=== PATIENT | male | born 1970 | race Caucasian/White ===

== ENCOUNTER 2022-10-17 11:04 | Outpatient (CLI) | payer OTHER, SELFPAY ==
[2022-10-18 03:26] LABS: Hemoglobin A1C 6.4 % (<5.7)
== END 2022-10-17 11:05 | disposition home or self-care (01) ==
LOC: ANHGOSHLAB 11:06
PROVIDERS: PCP Family Medicine; Visit Provider Internal Medicine
DX: E11.9 Type 2 diabetes mellitus without complications (principal); G47.30 Sleep apnea, unspecified; G47.34 Idiopathic sleep related nonobstructive alveolar hypoventilation; R06.83 Snoring
CPT/HCPCS: 36415; 83036

== ENCOUNTER 2022-11-01 08:16 | Outpatient (CLI) | payer OTHER, SELFPAY ==
--- NOTE | 2022-11-21 22:25 | WPDSLEEPSTUD ---
Sleep Study Date of Study: 11/01/22 Ordering Provider: Lukasz Mcintyre DO Interpreting Physician: Terri Mi DO Sleep Study Type: Split Polysomnogram Height: 1.83 m Weight: 99.79 kg Body Mass Index: 29.8 Neck Circumference (inches): 20 Emblem: 2 Reason for Sleep Study Loud snoring Sleep History The patient is a 52-year-old male with hypertension, seasonal allergy, benign prostatic hyperplasia, tinnitus that had a sleep study ordered by his primary care physician for evaluation of sleep apnea. The patient occasionally awakens from sleep short of breath. He denies awakening at night with heartburn, belching or cough. He constantly snores loudly enough that others complain. He frequently has trouble sleeping when he has a cold. He rarely wakes up gasping for air throughout the night. He rarely has breathing problems at night observed by himself or others. He denies sweating excessively at night. He denies having heart palpitations or irregular heartbeats during the night. He denies falling asleep during the day and while driving. He denies sleep paralysis, cataplexy and hypnagogic / hypnopompic hallucinations. He rarely has trouble at school or work due to sleepiness. He denies feeling afraid of going to sleep. He occasionally has nightmares. Constantly remembers his dreams. He rarely has thoughts racing through his mind. He denies feeling sad, depressed or anxious. He occasionally has muscular tension. He denies noticing parts of his body jerk. He denies kicking during the night. He denies having crawling and aching feelings in his legs and denies having leg pain during the night. He denies grinding his teeth during sleep and rarely awakens with morning jaw pain. He is occasionally bothered by pain during the day but rarely awakened by pain during the night. He rarely wakes up feeling stiff in the morning. He denies waking up with sore or achy muscles. He denies waking up with pain in the neck, spine or other joints. He goes to bed at 11:00 p.m. on both weekdays and weekends. It takes him less than 15 minutes to fall asleep. He wakes up 1-2 times throughout the night to urinate and is able to fall back asleep within a few minutes. He wakes up at 7:00 a.m. on both weekdays and weekends. He typically gets 7 8 hours of sleep per night. He will stay in bed for a few minutes after waking up in the morning. He currently lives with his . He does not consume any caffeinated beverages within 2 hours of bedtime. He denies engaging in physical exercise before bedtime. He will read before falling asleep. He denies taking naps in the afternoon or the evening. He consumes 1 cup of caffeinated beverage per day. He has 1 alcoholic beverage per day. He denies tobacco and recreational drug use. [facility] Past Medical History Medical History Allergies Erectile dysfunction Herpes Hypertriglyceridemia Male hypogonadism Prediabetes Sleep apnea Surgical History Surgical History History of nasal septoplasty Family History Family History Father Family history of alcoholism Sibling Alcohol abuse Drug abuse Social History Social History Smoking status: Never smoker Alcohol intake: current Lack of Transportation: No Lack of Food: Never True Current Housing: I Have Housing Concerned About Future Housing: No Difficulty Paying Gas/Electric Bills: No Difficulty Paying for Meds: No Currently Unemployed: No Education: Master's Degree or Higher Difficulty w/ Childcare or Family Care: No Medications Home Medications Medication Instructions Recorded Confirmed Type losartan 50 mg tablet 50 mg PO DAILY 10/17/22 10/17/22 History tadalafil 5 mg tablet (Giovany
[2022-11-21 22:40] VITALS: BMI 29.8
== END 2022-11-02 06:49 | disposition home or self-care (01) ==
LOC: ANHCSM 08:18
PROVIDERS: PCP Family Medicine; Visit Provider Internal Medicine
DX: G47.34 Idiopathic sleep related nonobstructive alveolar hypoventilation (principal); G47.33 Obstructive sleep apnea (adult) (pediatric)
CPT/HCPCS: 95811

== ENCOUNTER 2023-02-20 10:53 | Outpatient (CLI) | payer OTHER, SELFPAY ==
[2023-02-20 11:31] LABS: Hemoglobin A1C 6.1 % (<5.7)
== END 2023-02-20 10:54 | disposition home or self-care (01) ==
PROVIDERS: PCP Internal Medicine; Visit Provider Internal Medicine
DX: E11.9 Type 2 diabetes mellitus without complications (principal)
CPT/HCPCS: 36415; 83036

== ENCOUNTER 2023-07-17 09:40 | Outpatient (CLI) | payer OTHER, SELFPAY ==
[2023-07-17 19:00] LABS: Basophils Absolute Auto 0.1 K/mm3 (0.0-0.1); Basophils Percent Auto 0.8 % (0.2-1.2); Eosinophils Absolute Auto 0.1 K/mm3 (0-0.3); Eosinophils Percent Auto 1.1 % (0-4.4); Hematocrit 57.6 % (42.0-52.0); Hemoglobin 19.7 g/dL (14.0-18.0); Immature Granulocyte Absolute 0.03 K/mm3 (0.00-0.031); Immature Granulocyte Percent A 0.4 % (0-0.5); Lymphocytes Absolute Auto 2.55 K/mm3 (0.9-3.2); Lymphocytes Percent Auto 35.5 % (18.3-44.2); Mean Corpuscular HGB Conc 34.2 g/dl (32-36); Mean Corpuscular Hemoglobin 29.1 pg (26-34); Mean Corpuscular Volume 85.2 fl (80-100); Mean Platelet Volume 9.8 fl (7.4-10.4); Monocytes Absolute Auto 0.5 K/mm3 (0.1-0.6); Monocytes Percent Auto 7.4 % (2.6-8.5); Neutrophils Absolute Auto 3.9 K/mm3 (1.3-6.7); Neutrophils Percent Auto 54.8 % (45.5-73.1); Platelet Count Result 268 k/mm3 (150-375); Red Blood Count 6.76 M/mm3 (4.6-6.20); Red Cell Distribution Width 15.2 % (11.5-14.5); White Blood Count 7.2 K/mm3 (4.5-10.0)
[2023-07-17 19:02] LABS: Alanine Aminotransferase 22 U/L (6-50); Albumin Level 4.5 g/dL (3.5-5.1); Alkaline Phosphatase 73 U/L (38-126); Anion Gap 11 mmol/L (4-12); Aspartate Amino Transferase 35 U/L (17-59); Bilirubin,Total 0.8 mg/dL (0.2-1.3); Blood Urea Nitrogen 24 mg/dL (9-20); Calcium 10.3 mg/dL (8.4-10.2); Carbon Dioxide 27 mmol/L (22-30); Chloride 101 mmol/L (98-107); Cholesterol 212 mg/dL (0-200); Estimated Glomerular Filt Rate 58; Glucose 143 mg/dL (65-110); HDL Direct 33 mg/dL; Potassium 4.2 mmol/L (3.4-5.0); Sodium 139 mmol/L (137-145); Triglycerides 496 mg/dL (<150)
[2023-07-17 19:31] LABS: Prostate Specific Antigen 3.7 ng/mL (< OR = 4.0)
[2023-07-17 20:32] LABS: Hemoglobin A1C 6.2 % (<5.7)
[2023-07-18 00:17] LABS: LDL Cholesterol Direct 97 mg/dL
[2023-07-23 13:12] LABS: Apolipoprotein B 110 mg/dL
== END 2023-07-17 09:41 | disposition home or self-care (01) ==
LOC: ANHGOSHLAB 09:41
PROVIDERS: PCP Internal Medicine; Visit Provider Internal Medicine
DX: Z12.5 Encounter for screening for malignant neoplasm of prostate (principal); I10 Essential (primary) hypertension; R73.03 Prediabetes
CPT/HCPCS: 36415; 80053; 80061; 82172; 83036; 84153; 85025; G0103

== ENCOUNTER 2023-07-25 12:30 | Outpatient (CLI) | payer OTHER, SELFPAY ==
[2023-07-25 20:05] LABS: Prostate Specific Antigen 3.2 ng/mL (< OR = 4.0)
== END 2023-07-25 12:31 | disposition home or self-care (01) ==
LOC: ANHGOSHLAB 12:33
PROVIDERS: PCP Internal Medicine; Visit Provider Internal Medicine
DX: R97.20 Elevated prostate specific antigen [PSA] (principal); Z12.5 Encounter for screening for malignant neoplasm of prostate
CPT/HCPCS: 36415; 84153

== ENCOUNTER 2023-08-02 08:34 | Outpatient (CLI) | payer OTHER, SELFPAY ==
[2023-08-02 14:54] LABS: Kit Draw Collected
== END 2023-08-02 08:35 | disposition home or self-care (01) ==
LOC: ANHGOSHLAB 08:35
PROVIDERS: PCP Internal Medicine; Visit Provider Internal Medicine
DX: R97.20 Elevated prostate specific antigen [PSA] (principal)
CPT/HCPCS: 36415

== ENCOUNTER 2024-11-03 13:13 | Outpatient (CLI) | payer OTHER, SELFPAY ==
--- OUTSIDE RECORDS SUMMARY | 2024-11-03 13:34 | XMS_ITS | Clinical Summary ---
Author Organization [facility] Address [address] [place] [address] Care Team Providers Care Nut Blanker Operator Name Role Phone Emre Jackeline Beck DPT Unavailable [phone] Jackeline Andrea DPT Unavailable [phone] Denis Bass MD Unavailable [phone] Lukasz Mcintyre DO Primary Care Provider [phone] Allergies Active Allergy Reactions Criticality Noted Date Comments Codeine Rash Medium Reaction: Rash, Penicillins Unknown childhood Medications tadalafiL (CIALIS) 5 mg tabletIndication s:Erectile Dysfunction,jeremy gn prostatic hyperplasia with lower urinary tract sx Take 1 tablet (5 mg total) by mouth quality control tech raw materials before breakfast 1 Active prasterone, DHEA, (DHEA ORAL)Indications :supplement/horm one Take 1 tablet/capsule by mouth quality control tech raw materials before breakfast Active cholecalciferol, vitamin D3, (VITAMIN D3 ORAL)Indications :supplement Take 1 tablet/capsule by mouth daily With K2 Active testosterone (ANDROGEL) 1 % (25 mg/2.5gram) gel in packetIndication s:Androgen Deficiency Place 50 mg on the skin quality control tech raw materials before breakfast Active losartan (COZAAR) 50 mg tablet Take 1 tablet (50 mg total) by mouth daily 90 tablet 2 3 Active Additional Information Patient taking differently:50 mg oralDaily (early AM), Indications: hypertension, Informant: Self, Reported on 02/08/2024 tacrolimus (PROTOPIC) 0.1 % ointment APPLY OINTMENT EXTERNALLY TWICE DAILY NEEDED TO AFFECTED AREA AROUND EYE 4 Active carboxymethylcel lulose (REFRESH TEARS) 0.5 % ophthalmic solutionIndicati ons:Dry Eye Administer 1 drop into both eyes as needed (dry / irritated) Active latanoprost (XALATAN) 0.005 % ophthalmic solutionIndicati ons:Bilateral ocular hypertension Administer 1 drop into both eyes nightly 2.5 mL 11 5 Active Active Problems Problem Noted Date Diagnosed Date Bilateral ocular hypertension 10/22/2024 Assessment & Plan (10/22/2024 8:46 AM CDT): Intraocular pressure (IOP) elevated both eyes (OU) CCT avg Gonio open + Pigment No TIDs, no pseudo exfoliation (PXF) Start latanoprost for now RTC for Godwin visual field (HVF) 24-2, OCT RNFL both eyes (OU) [place]. 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 11/22/2023 Swelling of eyelid 05/23/2023 Assessment & Plan (05/23/2023 2:11 PM LIFE SCIENCE TECHNICAL OFFICER): In the setting of CPAP use Reassured patient that morning eyelid swelling is a common adverse effect Advised patient about appropriate fit/pressure levels Cool Compresses BID RTC 1 year for dilated eye exam Dry eye syndrome of both eyes 05/23/2023 Assessment & Plan (10/22/2024 8:46 AM CDT): Pres free art tears PRN both eyes (OU) at bedtime (qhs) both eyes (OU) Assessment & Plan (05/23/2023 2:08 PM LIFE SCIENCE TECHNICAL OFFICER): Due to prolonged computer use, will start with AT QID OU Blood glucose elevated 07/03/2022 Assessment & Plan (07/03/2022 9:15 AM CDT): Noted elevated fasting blood glucose. Ordering a BMP and an A1c. Hypogonadism in male 07/03/2022 Assessment & Plan (07/03/2022 9:14 AM CDT): He is currently on testosterone. Discussed side effect. We will review recent lab results . To sign a release Acute non-recurrent maxillary sinusitis 05/03/19 Assessment & Plan (05/03/2022 9:11 AM LIFE SCIENCE TECHNICAL OFFICER): Prescribing doxycycline 100 mg twice a day for 10 days. Recommended Flonase elxo-asc-fddrdsc nasal spray . To spray each nostrils daily. Recommended Claritin or Zyrtec. Polycythemia 05/03/2022 Assessment & Plan (05/03/2022 9:08 AM LIFE SCIENCE TECHNICAL OFFICER): Discussed secondary to medication/testosterone. Recommend holding off on testosterone for 3 months and repeating testosterone level and CBC. We will be repeating CBC. He has been following up with the urologist. Discussed side effects of testosterone. Patient aware. Dizziness 12/14/2021 Assessment & Plan (12/14/2021 12:54 PM CDT): Resolved could be secondary to hypertension. Discussed goal blood pressure of less than 140 x 90 mm Hg. At home it has been around 120 x 72 mm Hg. Recommend continuing lisinopril 10 mg. Recommend low-salt diet, healthy diet and regular exercise. We will check for D-dimer Encounter for health maintenance examination in adult 12/14/2021 Assessment & Plan (12/14/2021 12:54 PM CDT): Recommend healthy diet and regular exercise. Discussed screening for colon cancer. He has had a Cologuard in 2020. Discussed screening for prostate cancer. Current following up with urologist. Recommended immunization against tetanus, shingles, influenza and COVID-19. Pain of right lower extremity 12/14/2021 Assessment & Plan (12/14/2021 12:54 PM CDT): No significant abnormality noted. We will check for D-dimer and MARY Gross hematuria 01/14/2021 Assessment & Plan (01/28/2021 1:05 PM CDT): Urine dip showed blood; will send for culture, CT of abd and pelvis ordered and referral placed for urology. If symptoms worsen, if you get a fever, or fail to improve please notify office. Erythrocytosis 01/08/2021 Assessment & Plan (07/03/2022 9:15 AM CDT): Discussed elevated hemoglobin and hematocrit we will follow-up with the lab results. Discussed side effects of testosterone. Patient aware. Immunization counseling 12/28/2020 Assessment & Plan (12/28/2020 10:27 AM CDT): Discussed immunization against tetanus, influenza, shingles and COVID-19. Patient will be receiving immunization against shingles. Recommend to follow-up within 6 months for 2nd shot. Essential hypertension 09/23/2020 Assessment & Plan (07/03/2022 9:14 AM CDT): Blood pressure stable on losartan 50 mg. Highly recommend compliance with medication. Blood pressure elevated since patient has not taken the blood pressure medication today. Recommended following up with sleep specialist Dr. Perez regarding sleep apnea. Discussed goal blood pressure of less than 140 x 90 mm Hg. Recommend low-salt diet, healthy diet and regular exercise. Assessment & Plan (05/03/2022 9:10 AM LIFE SCIENCE TECHNICAL OFFICER): Discussed blood pressure elevated. Discussed goal blood pressure of less than 140 x 90 mm Hg. We will be switching lisinopril to losartan 50 mg due to side effects/causing cough. Recommend monitoring blood pressure at home if greater than 140 x 90 mm Hg can start taking losartan 50 mg 2 tablets. If below 100 x 60 or having dizziness then would recommend taking half of losartan 50 mg. Recommended low- salt diet, healthy diet and regular exercise. Follow-up in 6-8 weeks with blood pressure reading. If noted any side effects to notify. Discussed medication side effect. Assessment & Plan (12/28/2020 10:25 AM CDT): Repeat blood pressure was 1 30 x 92 mmHg. Recommended can increase lisinopril to 15 mg to take 10 mg and 5 mg together. Recommend low-salt diet, healthy diet and regular exercise. However if noticed any dizziness patient to notify. To follow-up in 3 months. Assessment & Plan (10/26/2020 8:20 AM CDT): Concerned with hypertension. Decreasing lisinopril to 10 mg. Recommend low-salt diet, healthy diet and regular exercise. Recommended monitoring blood pressure. Discussed goal blood pressure. To follow-up in 6 to 8 weeks. Assessment & Plan (09/23/2020 8:03 AM CDT): His blood pressures consistently run higher. We are going to start lisinopril after reviewing different alternatives. We went over medicine side effects. He is aware were starting a low dose and will titrate upward. He will follow-up in 4 weeks or sooner if needed. He voiced he is comfortable with the plan. JO (obstructive sleep apnea) 08/18/2020 Assessment & Plan (05/03/2022 9:08 AM LIFE SCIENCE TECHNICAL OFFICER): Currently on mouth guard. Assessment & Plan (10/26/2020 8:19 AM CDT): Reviewed recent sleep study results. Severe obstructive sleep apnea noted. Noted elevated hemoglobin hematocrit. Recommended CPAP. Patient prefers to have dental device. We will continue monitoring currently following up with sleep specialist. Assessment & Plan (08/18/2020 2:58 PM CDT): The differential diagnosis includes obstructive sleep apnea syndrome, upper airways resistance syndrome and simple snoring. I recommend polysomnography to further evaluate the symptoms described. The risks of untreated sleep apnea syndrome include hypertension, myocardial infarction; cerebrovascular accident and heart failure were discussed with the patient. The treatment options for obstructive sleep apnea syndrome including CPAP therapy, surgical options, oral appliances, and weight loss were discussed with the patient. In addition, the patient was warned against driving while drowsy. The patient agrees with the plan to undergo an all-night polysomnogram and more information will follow after this study. Home sleep study will be ordered, this patient has a high clinical suspicion of obstructive sleep apnea, if home sleep study negative, will proceed with in lab polysomnography. 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 Recommended Claritin or Zyrtec. Can try Flonase. Discussed less likely secondary to lisinopril. Patient denies any cough. 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 Hypertrophy of nasal turbinates 12/03/2013 Inguinal pain 09/15/2011 Encounters Date Type Department Care Team Description 10/22/2024 8:00 AM CDT Office Visit [facility] Ophthalmology [facility] [address], [address] [place] [address] Gabriel Blum, OD Bilateral ocular hypertension (Primary Dx); Dry eye syndrome of both eyes from Last 3 Months Immunizations Immunization Administration Dates Next Due Influenza, Unspecified 07/03/2022(Deferred: Shreya ent Refused) Pfizer SARS-CoV-2 Monovalent Vaccination (12+ Yrs) PURPLE 06/29/2020,06/07/2020 Tdap 03/15/2018 Surgical History Surgery Date Site/Laterality Comments TONSILECTOMY, ADENOIDECTOMY, BILATERAL MYRINGOTOMY AND TUBES childhood HERNIA REPAIR 03/26/2007 - 03/25/2008 direct and ind inguinal NOSE SURGERY 03/26/2016 - 03/25/2017 BIOPSY 02/08/2024 Right RIGHT ORBITAL AND CHEEK BIOPSY Medical History Medical History Date Comments Periorbital swelling Right Epiphora Hard to intubate 2014 Notes in [place]. Successul intubation with asleep fiberoptic intubation. Family History Medical History Relation Name Comments Ankylosing spondylitis Brother Alcohol abuse Father Heart disease Maternal Grandmother Family history of cardiac disorder - (Added by TW Conv) No Known Problems Mother Relation Name Status Comments Brother Father Maternal Grandmother Mother Social History Tobacco Use Types Packs/Day Years Used Date Smoking Tobacco: Never Tobacco Cessation:Counseling Given: Not Answered AUDIT-C Answer Date Recorded Q1: How often do you have a drink containing alc ohol? 2-3 times a week 02/08/2024 Q2: How many drinks containi ng alcohol do you have on a typical day when you are drinking? 1 or 2 02/08/2024 Q3: How often do you have si x or more drinks on one occasion? Never 02/08/2024 PHQ-2 Answer Date Recorded PHQ-2 Total Score (If total score is 3 or more points, staff should administer the PHQ-9) 0 12/14/2021 Personal Safety Answer Date Recorded Have you ever been in or are you currently in a harmful physical or emotional relationship or is someone making you feel afraid or unsafe? Denies 02/08/2024 Sex and Gender Information Value Date Recorded Sex Assigned at Not on file Legal Sex Male 8:51 PM LIFE SCIENCE TECHNICAL OFFICER Gender Identity Male 09/28/2021 9:10 AM CDT Sexual Orientation Straight 09/28/2021 9: 10 AM CDT Obstetrics History Last Filed Vital Signs Vital Sign Reading Time Taken Comments Blood Pressure 132/80 02/08/2024 5:50 PM LIFE SCIENCE TECHNICAL OFFICER Pulse 68 02/08/2024 5:50 PM LIFE SCIENCE TECHNICAL OFFICER Temperature 36.2 C (97.2 F) 02/08/2024 5:38 PM LIFE SCIENCE TECHNICAL OFFICER Respiratory Rate 17 02/08/2024 5:50 PM LIFE SCIENCE TECHNICAL OFFICER Oxygen Saturation 94% 02/08/2024 5:50 PM LIFE SCIENCE TECHNICAL OFFICER Inhaled Oxygen Concentration - - Weight 102.1 kg (225 lb) 02/08/2024 2:31 PM LIFE SCIENCE TECHNICAL OFFICER Height 182.9 cm (6') 02/08/2024 2:31 PM LIFE SCIENCE TECHNICAL OFFICER Body Mass Index 30.52 02/08/2024 2:31 PM LIFE SCIENCE TECHNICAL OFFICER Plan of Treatment Health Maintenance Due Date Last Done Comments Hepatitis C Screening 1970 Hepatitis B Screening 09/27/1987 Zoster Vaccine (1 of 2) 09/27/2019 Prostate Cancer Screening-PSA 07/14/2022 07/14/2020 Depression Screening 12/14/2022 12/14/2021, 10/25/2020, 07/14/2020 Regular Well Visit/Exam 18-64 12/14/2022 12/14/2021, 07/14/2020, 07/14/2020 Colon Cancer Screening-DNA Stool 07/20/2023 07/19/2020 Covid-19 Vaccine ( season) 2023 03/29/2021, 06/29/2020, 06/07/2020 DTaP/Tdap/Td Vaccine (3 - Td or Tdap) 03/15/2028 03/15/2018, 12/17/2017 Colon Cancer Screening-FIT Discontinued 07/19/2020 Influenza Vaccine Discontinued Pneumococcal vaccine <65 Aged Out No longer eligible based on patient's age to complete this topic Procedures Procedure Name Priority Date/Time Associated Diagnosis Comments STOOL DNA COLOGUARD Routine 07/19/2020 7:30 AM CDT Encounter for colorectal cancer screening PSA SCREEN Routine 07/14/2020 9:54 AM CDT General medical exam from Last 3 Months or Most Recently Relevant to Health Maintenance Results * Stool DNA - Cologuard (07/19/2020 7:30 AM CDT) Stool DNA - Cologuard Negative Not Applicable [employer] (The Mother ListIA #:[id number]) Comment: A negative result indicates a low likelihood that a colorectal cancer (CRC) or an advanced adenoma (adenomatous polyps with more advanced pre-malignant features) is present. The chance that a person with a negative Cologuard test has a colorectal cancer is less than 1 in 1500 (negative predictive value >99.9%) or has an advanced adenoma is less than 5.3% (negative predictive value 94.7%). These data are based on a prospective cross-sectional screening study of 10,000 individuals at average risk for colorectal cancer who were screened with both Cologuard and colonoscopy. (Misty Knox al, N Engl J Med 2014;370(14):1236-8017) The normal value (reference range) for this assay is negative. COLOGUARD RE-SCREENING RECOMMENDATION: Periodic routine colorectal cancer screening is an important part of preventive healthcare for asymptomatic persons at average risk for colorectal cancer. Following a negative Cologuard result, the [place] [employer] Society and U.S. Multi-Society Task Force screening guidelines recommend a Cologuard re-screening interval of 3 years. References: [place] [employer] Society (ACS). Colorectal cancer prevention and early detection. [place], [place]: [place] [employer]; [updated 2015Jul 17]. https://www.cancer.org/cancer/fmlhd-lacbyg-ezmida/vesfvuuao-uoekkbrct-bpowdjm/ac s-rec ommendations.html. Accessed November 23, 2017; Steve RAPP, Calixto HOOKS, Bill MUNROE, Colorectal Cancer Screening: Recommendations for Physicians and Patients from the U.S. Multi-Society Task Force on Colorectal Cancer Screening, Am J Gastroenterology 2017; 112:6098-3629. TEST TYPE: Composite algorithmic analysis of stool DNA-biomarkers with hemoglobin immunoassay. Quantitative values of individual biomarkers are not reportable and are not associated with individual biomarker result reference ranges. PRECAUTIONS AND LIMITATIONS: Cologuard is intended for colorectal cancer screening of adults of either sex, 45 years or older, who are at average-risk for colorectal cancer (CRC). Cologuard has been approved for use by the U.S. FDA. Cologuard may produce a false negative or false positive result. A negative Cologuard test result does not guarantee the absence of CRC or advanced adenoma (pre-cancer). Patients with a negative Cologuard test result should be advised to continue participating in a colorectal cancer screening program. The screening interval for Cologuard is currently recommended at an interval of every 3 years by the [place] [employer] Society and U.S. Multi-Society Task Force. A false positive result occurs when Cologuard produces a positive result, even though a colonoscopy may not find colorectal cancer or precancerous polyps. The performance of Cologuard has been established in a cross sectional study (i.e., single point in time) of average-risk adults aged 50-84. Cologuard performance in patients ages 45 to 49 years was estimated by sub-group analysis of near-age groups. Cologuard performance data in a 10,000 patient pivotal study using colonoscopy as the reference method can be accessed at the following location: www.ImageTag.Parkya/results. Additional description of the Cologuard test process, warnings and precautions can be found at www.cologuardtest.com. Rx only. Stool 07/19/2020 7:30 AM CDT 08/12/2020 4:58 PM CDT Sayda Davis MD LAB BODY FLUIDS AND STO OLS ORDERABLES Final Result [employer] [facility] (CLIA #:[id number]) [place] [address] * PSA screen (07/14/2020 9:54 AM CDT) PSA-Total 2.18 <=3.90 ng/mL [facility] Comment: Interpretive Data AGE SEX REFERENCE INTERVAL 0 minutes-150 years Female None 0 minutes-49 years Male None 50-59 years Male 0-3.90 60-69 years Male 0-5.40 70-79 years Male 0-6.20 80-150 years Male 0-6.20 Current interpretive data last revised 2017. Blood specimen (specimen) 07/14/2020 9:54 AM CDT 07/14/2020 12:28 PM CDT Sayda Davis MD LAB BLOOD ORDERABLES Fi nal Result Performing Organization Address [facility] Co de Phone Number [facility] [address] Department [place] [address] from Last 3 Months or Most Recently Relevant to Health Maintenance Insurance [facility] [id number] [id number] [facility] [id number] Care Teams Nut Blanker Operator Relationship Specialty Start Date End Date Lukasz Mcintyre DO [address] [facility] [place] [address] PCP - General Internal Medicine 07/03/23 Jackeline Andrea DPT Physical Therapist Physical Therapy 11/06/19 Jackeline Andrea DPT Physical Therapist Physical Therapy 11/06/19 Denis Bass MD [address] [facility] [place] [address] Consulting Physician Hematology and Oncology 01/04/21
--- OUTSIDE RECORDS SUMMARY | 2024-11-03 13:34 | XMS_ITS | Clinical Summary ---
Author Organization [facility] Address [address] [place] [address] Care Team Providers Care Chief Lending Officer Name Role Phone Liorjennifer Lukasz Vicki DO Primary Care Provider Source Comments [facility],non-owned Affiliates and Associated Physician Practices is amultiple site organization consisting of ambulatory clinics and [place]in [place] and [place]. This disclosure is being madepursuant to the Care Everywhere program and may not contain all information available regarding this patient. Last updated 17[facility] Allergies Active Allergy Reactions Criticality Noted Date Comments Codeine Rash Medium 08/13/2017 Penicillins Nausea and/or Vomiting 08/13/2017 Medications * Be aware that medications may not be up to date on this document. Alwaysverify current medications with the patient. CIALIS 20 MG tablet 8 Active ibuprofen (MOTRIN) 800 MG tablet Take 1 (one) tablet by mouth every 6 hours as needed Active meloxicam (MOBIC) 15 MG tablet Take 1 tablet by mouth once daily 30 tablet 2 8 Active Additional Information Patient not taking.Reported on 02/27/2019 [place]-3 Fatty Acids (FISH OIL) 500 MG capsule Take by mouth 2 times daily Active benzonatate (TESSALON) 200 MG capsule Take 1 capsule by mouth 3 times daily as needed for Cough 30 capsule 9 Active testosterone (Androgel;Testi m) 25 MG/2.5GM (1%) gel Apply 50 mg to skin once daily Active losartan (Cozaar) 50 MG tablet Take 1 (one) tablet by mouth once daily Active Active Problems No known active problems Encounters Date Type Department Care Team Description 09/19/2024 8:15 AM CDT Office Visit [facility] - Urology [address] [place] [address] [address] [place] [address] Juan Manuel Fleming MD Elevated PSA (Primary Dx); Benign prostatic hyperplasia with urinary hesitancy 09/19/2024 Travel from Last 3 Months Social History Tobacco Use Types Packs/Day Years Used Date Smoking Tobacco: Never Smokeless Tobacco: Never Alcohol Use Standard Drinks/Week Comments Yes 0 (1 standard drink = 0.6 oz pur e alcohol) PHQ-2 Answer Date Recorded Patient Health Questionnaire-2 Score 0 09/19/2024 Sex and Gender Information Value Date Recorded Sex Assigned at Not on file Legal Sex Male 10:51 AM CDT Gender Identity Not on file Sexual Orientation Not on file Last Filed Vital Signs Vital Sign Reading Time Taken Comments Blood Pressure 128/83 09/19/2024 8:05 AM CDT Pulse 63 09/19/2024 8:05 AM CDT Temperature 36.6 C (97.8 F) 09/19/2024 8:05 AM CDT Respiratory Rate 18 09/19/2024 8:05 AM CDT Oxygen Saturation 98% 09/19/2024 8:05 AM CDT Inhaled Oxygen Concentration - - Weight 101.6 kg (224 lb) 09/19/2024 8:05 AM CDT Height 182.9 cm (6') 09/19/2024 8:05 AM CDT Body Mass Index 30.38 09/19/2024 8:05 AM CDT Plan of Treatment Upcoming Encounters Date Type Department Care Team (Late st Contact Info) Description 09/18/2025 8:15 AM CDT Office Visit [facility] - Urology [address] [place] [address] [address] [place] [id number] Juan Manuel Fleming MD [address] [place] [phone] Health Maintenance Due Date Last Done Comments COLOGUARD (AGES 45-75) - COL ON CA SCREENING 1969 COLON MONITORING 1969 COLONOSCOPY - COLON CA SCREENING 1969 CT COLONOGRAPHY - COLON CA SCREENING 1969 Colorectal Cancer Screening 1969 FIT - COLON CA SCREENING 1969 FLEX SIG - COLON CA SCREENING 1969 LIPID TESTING 1969 HIV SCREENING 1984 HEPATITIS C SCREENING 09/22/1987 DTAP/TDAP/TD VACCINES (1 - Tdap) 1988 HEPATITIS B VACCINE (1 of 3 - 19+ 3-dose series) 1988 PNEUMOCOCCAL VACCINE 50+ (1 of 1 - PCV) 09/27/2019 ZOSTER VACCINE (1 of 2) 09/27/2019 SCREENING FOR DIABETES 11/03/2023 11/02/2020 COVID-19 VACCINE (3 - 2023-2 5 season) 2023 06/29/2020, 06/07/2020 INFLUENZA VACCINE (#1) 2024 DEPRESSION SCREENING Completed 09/19/2024 HIB VACCINE Aged Out No longer eligi ble based on patient's age to complete this topic HPV VACCINE Aged Out No longer eligi ble based on patient's age to complete this topic MENINGOCOCCAL (Group B) VACCINE SHARED DECISION-MAKING Aged Out No longer eligible based on patient's age to complete this topic MENINGOCOCCAL GROUPS A/C/Y/W VACCINE Aged Out No longer eligible b ased on patient's age to complete this topic Insurance [employer] Care Teams Chief Lending Officer Relationship Specialty Start Date End Date Lukasz Mcintyre DO PCP - General 08/13/17
[2024-11-04 07:08] LABS: PSA, Free 0.38 ng/mL
== END 2024-11-03 13:14 | disposition home or self-care (01) ==
LOC: ANHGOSHLAB 13:14
PROVIDERS: PCP Internal Medicine
DX: R97.20 Elevated prostate specific antigen [PSA] (principal)
CPT/HCPCS: 84153; 84154

== ENCOUNTER 2025-02-27 08:19 | Outpatient (CLI) | payer OTHER, SELFPAY ==
[2025-02-27 13:04] LABS: Hematocrit 52.3 % (42.0-52.0); Hemoglobin 18.4 g/dL (14.0-18.0); Immature Granulocyte Percent A 0.4 % (0-0.5); Lymphocytes Absolute Auto 2.79 K/mm3 (0.9-3.2); Mean Corpuscular HGB Conc 35.2 g/dl (32-36); Mean Corpuscular Hemoglobin 29.5 pg (26-34); Mean Corpuscular Volume 83.9 fl (80-100); Nucleated Red Blood Cells Absolute Auto 0.000 K/mm3 (0.0-0.012); Nucleated Red Blood Cells Perc 0.0 % (0.0-0.2); Platelet Count Result 277 k/mm3 (150-375); Red Blood Count 6.23 M/mm3 (4.6-6.20); White Blood Count 7.2 K/mm3 (4.5-10.0)
[2025-02-27 14:10] LABS: MALB Creatinine Ratio 5.0 mg/g (0-30)
[2025-02-27 15:14] LABS: Alanine Aminotransferase 20 U/L (6-50); Albumin Level 4.3 g/dL (3.5-5.1); Alkaline Phosphatase 76 U/L (38-126); Amylase 67 U/L (30-110); Anion Gap 9 mmol/L (4-12); Aspartate Amino Transferase 28 U/L (17-59); Bilirubin,Total 0.6 mg/dL (0.2-1.3); Blood Urea Nitrogen 21 mg/dL (9-20); Calcium 9.4 mg/dL (8.4-10.2); Carbon Dioxide 23 mmol/L (22-30); Chloride 103 mmol/L (98-107); Estimated Glomerular Filt Rate 53; Glucose 141 mg/dL (65-110); Lipase 123 U/L (23-300); Sodium 135 mmol/L (137-145); Total Protein 7.4 g/dL (6.3-8.2)
[2025-02-27 15:21] LABS: Potassium 3.9 mmol/L (3.4-5.0)
== END 2025-02-27 08:20 | disposition home or self-care (01) ==
LOC: ANHGOSHLAB 08:20
DX: E78.2 Mixed hyperlipidemia (principal); E78.1 Pure hyperglyceridemia; I10 Essential (primary) hypertension; E11.9 Type 2 diabetes mellitus without complications
CPT/HCPCS: 36415; 80053; 82043; 82150; 82172; 83690; 85025